=== PATIENT | female | born 1980 | race Caucasian/White ===

== ENCOUNTER 2016-05-20 17:35 | Observation (INO) | payer OTHER ==
[2016-05-20 17:35] VITALS: BMI 41.5
[2016-05-20 17:43] VITALS: RESP 18
[2016-05-20] MEDS ORDERED: Albuterol 0.083% Inhal Sol (2.5 mg/3 mL) UD ONE (17:53)
[2016-05-20] MEDS ORDERED: Sodium Chloride 0.9% 1,000 ML IV STA (17:57)
--- NOTE | 2016-05-20 18:04 | ED PDOC ---
HPI: General Adult Time Seen by Provider: 05/20/16 17:44 Chief Complaint (Nursing): Cough, Cold, Congestion Chief Complaint (Provider): Cough, Cold, Congestion History Per: Patient History/Exam Limitations: no limitations Onset/Duration Of Symptoms: Days (x2 days) Have you had recent travel within the past 21 days to any of the following countries: [place], [place], [employer] or [place]?: No Current Symptoms Are (Timing): Still Present Severity: Moderate Additional Complaint(s): Shae Peña is a 35 year old female, with a past medical history of asthma and anemia, who presents to the emergency department for the evaluation of a cough that produces white and green sputum, that the patient has been experiencing for the past two days. Patient states she was wheezing, but her symptoms cleared up prior to arrival. Associated fever, congestion, and generalized weakness are also currently present. States that she feels her blood count is low. Reports a long hx of anemia and multiple previous blood transfusions. States that her menstruation ended yesterday but she had heavy vaginal bleeding begining on 05/07/2016. Denies dysuria, pelvic pain, abdominal pain, melena, hematochezia, BRBPR. Last BM was today and was normal. PMD: Dr. Houston Past Medical History Reviewed: Historical Data, Nursing Documentation, Vital Signs Vital Signs: Last Vital Signs Temp 98.2 F 05/20/16 20:14 Pulse 92 H 05/20/16 20:14 Resp 18 05/20/16 20:14 BP 131/77 05/20/16 20:14 Pulse Ox 98 05/20/16 20:14 - Medical History PMH: Anemia, Asthma, Bipolar Disorder (non-compliant with medications x3 months) , Schizophrenia (non-compliant with medications x3 months) Denies: Seizures, Sexually Transmitted Disease - Surgical History Other surgeries: Right ovarian cyst removed; Vaginal polyps/cyst removed - Family History Family History: States: No Known Family Hx - Social History Current smoker - smoking cessation education provided: Yes (Light smoker <10 cigarettes daily) Alcohol: None Drugs: Denies - Home Medications Home Medications: Ambulatory Orders Medication Instructions Recorded Ferrous Sulfate [Feosol] 325 mg PO BID #60 tablet 08/24/15 - Allergies Allergies/Adverse Reactions: Allergies Allergy/AdvReac Type Severity Reaction Status Date / Time No Known Allergies Allergy Verified 08/23/15 21:37 Review of Systems ROS Statement: Except As Marked, All Systems Reviewed And Found Negative Constitutional: Positive for: Fever ENT: Positive for: Nose Congestion Respiratory: Positive for: Cough, Sputum (white and green), Wheezing Neurological: Positive for: Weakness Physical Exam - Reviewed Nursing Documentation Reviewed: Yes Vital Signs Reviewed: Yes - Physical Exam Appears: Positive for: Non-toxic, No Acute Distress Head Exam: Positive for: ATRAUMATIC, NORMOCEPHALIC Skin: Positive for: Normal Color, Warm, Dry Eye Exam: Positive for: Normal appearance, EOMI ENT: Positive for: Normal ENT Inspection. Negative for: Pharyngeal Erythema, Tonsillar Exudate, Tonsillar Swelling Neck: Positive for: Normal, Painless ROM, Supple Cardiovascular/Chest: Positive for: Regular Rate, Rhythm. Negative for: Murmur Respiratory: Positive for: Normal Breath Sounds. Negative for: Wheezing, Respiratory Distress Gastrointestinal/Abdominal: Positive for: Normal Exam, Soft. Negative for: Tenderness Back: Positive for: Normal Inspection. Negative for: L CVA Tenderness, R CVA Tenderness Extremity: Positive for: Normal ROM. Negative for: Tenderness, Swelling Neurologic/Psych: Positive for: Alert, Oriented - Laboratory Results Result Diagrams: 05/20/16 18:10 05/20/16 18:10 Urine POC: Negative - ECG ECG: Positive for: Interpreted By Me ECG Rhythm: Positive for: Sinus Rhythm. Negative for: ST/T Changes Rate: 85 O2 Sat by Pulse Oximetry: 99 (RA) Pulse Ox Interpretation: Normal Medical Decision Making Medical Decision Makin:44 Initial Impression: Anemia vs. viral syndrome Initial Plan: * CXR * CBC * CMP * PT/INR * PTT * Type and Screen * Urine * UA * Peak Flow Pre/Post Treatment * Albuterol 0.083% 2.5 mg INH * Sodium Chloride 0.9% 1,000 ml IV at 1,000 mls/hr * Reevaluation Scribe Attestation: Documented by Jeb Anaya, acting as a scribe for ASHELY Hilton. Provider Scribe Attestation: All medical record entries made by the Scribe were at my direction and personally dictated by me. I have reviewed the chart and agree that the record accurately reflects my personal performance of the history, physical exam, medical decision making, and the department course for this patient. I have also personally directed, reviewed, and agree with the discharge instructions and disposition. Disposition - Clinical Impression Clinical Impression: Symptomatic anemia - Patient ED Disposition Is Patient to be Admitted: Yes - Disposition Disposition Time: 19:00 Condition: STABLE
[2016-05-20] MEDS ORDERED: Albuterol 0.083% Inhal Sol (2.5 mg/3 mL) UD INH STA (18:17)
--- NOTE | 2016-05-20 18:21 | RAD ---
HISTORY: Cough COMPARISON: 06/23/2014 TECHNIQUE: Chest PA and lateral FINDINGS: LUNGS: The lungs are well inflated and clear. PLEURA: No significant pleural effusion identified. No pneumothorax apparent. CARDIOVASCULAR: Normal. OSSEOUS STRUCTURES: No significant abnormalities. VISUALIZED UPPER ABDOMEN: Normal. OTHER FINDINGS: None. IMPRESSION: No active pulmonary disease.
[2016-05-20 18:30] LABS: BASO # 0.1 K/uL (0.0-0.2); BASO % 0.6 % (0.0-2.0); EOS # 0.1 K/uL (0.0-0.7); EOS % 0.5 % (0.0-4.0); HEMATOCRIT 25.2 % (34.0-47.0); LYMPH # 3.6 K/uL (1.0-4.3); LYMPH % 25.7 % (20.0-40.0); MEAN CELL VOLUME 57.6 fl (81.0-99.0); MEAN CORPUSCULAR HEMOGLOBIN 15.9 pg (27.0-31.0); MEAN CORPUSCULAR HGB CONC 27.5 g/dL (33.0-37.0); MONO # 0.8 K/uL (0.0-0.8); NEUT # 9.3 K/uL (1.8-7.0); NEUT % 67.2 % (50.0-75.0); NRBC % 0.1 % (0.0-0.0); RED CELL DISTRIBUTION WIDTH 19.7 % (11.5-14.5); WHITE BLOOD COUNT 13.9 K/uL (4.8-10.8)
[2016-05-20 18:41] LABS: ALKALINE PHOSPHATASE 88 U/L (38-126); ALT/SGPT 83 U/L (9-52); AST/SGOT 125 U/L (14-36); BILIRUBIN,TOTAL 0.8 mg/dl (0.2-1.3); BLOOD UREA NITROGEN 8 mg/dl (7-17); CALCIUM 9.2 mg/dL (8.4-10.2); CARBON DIOXIDE 26 mmol/L (22-30); CHLORIDE 105 mmol/L (98-107); GFR AFRICAN-AMERICAN > 60; GLUCOSE,RANDOM 92 mg/dL (65-105); POTASSIUM 4.4 MMOL/L (3.6-5.0); SODIUM 144 mmol/l (132-148); TOTAL PROTEIN 7.3 G/DL (6.3-8.2)
[2016-05-20 18:50] LABS: PARTIAL THROMBOPLASTIN TIME 21.4 SECONDS (23.3-32.5)
[2016-05-20 19:32] LABS: RBC URINE 2 /hpf (0-3); URINE BACTERIA OCC (<OCC); URINE BILIRUBIN NEGATIVE (NEGATIVE); URINE BLOOD SMALL (NEGATIVE); URINE COLOR AMBER (YELLOW); URINE GLUCOSE (UA) NEG (Normal); URINE KETONE NEGATIVE (NEGATIVE); URINE LEUKOCYTE ESTERASE MOD Leu/uL (Negative); URINE PROTEIN 100 mg/dL (NEGATIVE); WBC URINE 29 /hpf (0-5)
--- NOTE | 2016-05-21 | CP.PCM.HP ---
History of Present Illness - History of Present Illness History of Present Illness: 35yo F w PMHx of chronic anemia, menorrhagia, and schizoaffective disorder bipolar type is admitted due to symptomatic anemia for two days. Following the completion of her menstrual cycle two days ago, she experiences dizziness when physically exerting herself. She denies LOC, headstrike, nausea, vomiting, chest pain, SOB, or exertional dyspnea. However, pt does have a history of admissions for such symptomatic anemia associated with heavy menstrual bleeding. Pt also complaining of mild cough, upper airway congestion for the previous day, and home temperature readings < 100F. Otherwise, she denies diarrhea, constipation, abdominal pain, hematuria, dysuria, hematochezia, melena , or myalgias. 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; , Cycle occurs ev 4-6 wks, uses 1 pack of pads/ day during first week NKDA Home Meds: (as per pt) Iron Daily, Celexa 20mg PO Daily, and Olanzapine 20mg PO HS SHx: 5-8 cigarettes per day, denies etoh, denies illicit drugs ED Course: -CBC -CMP -PT/INR/PTT -EKG -Type & Crossmatch -2u pRBCs -NS @ 1L -UA -Utox Present on Admission - Present on Admission Any Indicators Present on Admission: No History of DVT/PE: No History of Uncontrolled Diabetes: No Urinary Catheter: No Decubitus Ulcer Present: No Review of Systems - Review of Systems Review of Systems: see HPI Past Patient History - Infectious Disease Hx of Infectious Diseases: None - Past Medical History & Family History Past Medical History?: Yes - Past Social History Alcohol: None Drugs: Denies - CARDIAC Hx Cardiac Disorders: No - PULMONARY Hx Asthma: Yes - NEUROLOGICAL Hx Seizures: No - HEENT Hx HEENT Problems: No - ENDOCRINE/METABOLIC Hx Endocrine Disorders: No - HEMATOLOGICAL/ONCOLOGICAL Hx Anemia: Yes - INTEGUMENTARY Hx Dermatological Problems: No - MUSCULOSKELETAL/RHEUMATOLOGICAL Hx Musculoskeletal Disorders: No - GASTROINTESTINAL Hx Gastrointestinal Disorders: Yes Other/Comment: hx abdominal pains - GENITOURINARY/GYNECOLOGICAL Hx Sexually Transmitted Disorders: No - PSYCHIATRIC Hx Bipolar Disorder: Yes (non-compliant with medications x3 months) Hx Schizophrenia: Yes (non-compliant with medications x3 months) - SURGICAL HISTORY Hx Surgeries: Yes Other/Comment: Right Ovarian cyst removed and Vaginal polyps/cyst removed - ANESTHESIA Hx Anesthesia: Yes Hx Anesthesia Reactions: No Hx Malignant Hyperthermia: No Meds Allergies/Adverse Reactions: Allergies Allergy/AdvReac Type Severity Reaction Status Date / Time No Known Allergies Allergy Verified 08/23/15 21:37 Physical Exam - Constitutional Appears: Non-toxic, No Acute Distress - Head Exam Head Exam: ATRAUMATIC, NORMAL INSPECTION - Eye Exam Eye Exam: EOMI Pupil Exam: PERRL - ENT Exam ENT Exam: Mucous Membranes Dry - Neck Exam Neck exam: Positive for: Full Rom. Negative for: Tenderness - Respiratory Exam Respiratory Exam: Clear to Auscultation Bilateral, NORMAL BREATHING PATTERN. absent: Rhonchi, Wheezes, Respiratory Distress - Cardiovascular Exam Cardiovascular Exam: REGULAR RHYTHM - GI/Abdominal Exam GI & Abdominal Exam: Normal Bowel Sounds, Soft. absent: Tenderness - Extremities Exam Extremities exam: Positive for: normal inspection. Negative for: calf tenderness - Neurological Exam Neurological exam: Alert, CN II-XII Intact, Oriented x3 - Psychiatric Exam Psychiatric exam: Normal Affect, Normal Mood - Skin Skin Exam: Dry, Intact, Pallor Results - Vital Signs Recent Vital Signs: Last Vital Signs Temp 98.2 F 05/20/16 20:14 Pulse 85 05/20/16 22:16 Resp 18 05/20/16 20:14 BP 131/77 05/20/16 20:14 Pulse Ox 99 05/20/16 22:16 - Labs Result Diagrams: 05/20/16 18:10 05/20/16 18:10 Assessment & Plan - Assessment and Plan (Free Text) Plan: 35yo F w PMHx of chronic anemia, menorrhagia, schizophrenia, and bipolar disorder is admitted due to symptomatic anemia for two days 1) Symptomatic Anemia -Associated w menstrual cycle, which completed two days prior to visit -Noted dizziness during exertion or ambulation -H/H: 6.9/25.2 -Ordered for 2u pRBCs by ED -f/u post transfusion CBC -f/u Signs/Symptoms -f/u Vitals -f/u EKG 2) Elevated LFTs -Currently taking Olanzapine -f/u Hep Panel -f/u Tox Screen -f/u CMP 3) Schizoaffective Disorder - Bipolar Type -c/w Home Medications (listed below) -pt states she sees Psych @ [facility] 2x/wk but does not recall physician's name -Olanzapine 20mg PO HS -Celexa 20mg PO Daily 4) URI -Presently asymptomatic -Afebrile, No cough, No rhinorrhea, Benign respiratory exam -Will consider symptomatic therapy if symptoms return 5) DVT Prophylaxis -SCDs
[2016-05-21] MEDS ORDERED: Albuterol 0.083% Inhal Sol (2.5 mg/3 mL) UD INH PRN (00:01)
[2016-05-21 01:32] VITALS: O2SAT 98
[2016-05-21] MEDS ORDERED: guaiFENesin DM 200 mg-20 mg/10 ml UD PO PRN (05:35)
[2016-05-21 07:35] LABS: HEMATOCRIT 27.7 % (34.0-47.0); MEAN CELL VOLUME 62.7 fl (81.0-99.0); MEAN CORPUSCULAR HEMOGLOBIN 17.8 pg (27.0-31.0); MEAN CORPUSCULAR HGB CONC 28.5 g/dL (33.0-37.0); RED CELL DISTRIBUTION WIDTH 25.1 % (11.5-14.5); WHITE BLOOD COUNT 11.7 K/uL (4.8-10.8)
[2016-05-21 08:15] VITALS: BP 118/75; PULSE 66; TEMP 98.2
[2016-05-21 10:10] LABS: HEMATOCRIT 26.8 % (34.0-47.0); MEAN CELL VOLUME 62.2 fl (81.0-99.0); MEAN CORPUSCULAR HEMOGLOBIN 17.9 pg (27.0-31.0); MEAN CORPUSCULAR HGB CONC 28.8 g/dL (33.0-37.0); RED CELL DISTRIBUTION WIDTH 24.3 % (11.5-14.5); WHITE BLOOD COUNT 10.6 K/uL (4.8-10.8)
--- NOTE | 2016-05-21 10:36 | CP.PCM.DIS ---
Provider - Provider Date of Admission: 05/20/16 19:39 Attending physician: Tanya Durand MD Time Spent in preparation of Discharge (in minutes): 40 Diagnosis - Discharge Diagnosis (1) Symptomatic anemia Status: Acute Priority: Medium Comment: - s/p 2Units of PRBCs. - H/H 7.9/27.7. -hx of heavy menstrul periods. -Continue IROn sulfate 325 mg PO TID. 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 - OCPs will be considered Hospital Course - Lab Results Lab Results: Most Recent Lab Values WBC 10.6 K/uL (4.8-10.8) 05/21/16 09:45 RBC 4.31 Mil/uL (3.80-5.20) 05/21/16 09:45 Hgb 7.7 g/dL (12.0-16.0) L 05/21/16 09:45 Hct 26.8 % (34.0-47.0) L 05/21/16 09:45 MCV 62.2 fl (81.0-99.0) L 05/21/16 09:45 MCH 17.9 pg (27.0-31.0) L 05/21/16 09:45 MCHC 28.8 g/dL (33.0-37.0) L 05/21/16 09:45 RDW 24.3 % (11.5-14.5) H 05/21/16 09:45 Plt Count 198 K/uL (130-400) 05/21/16 09:45 MPV 9.0 fl (7.2-11.7) 05/20/16 18:10 Neut % (Auto) 67.2 % (50.0-75.0) 05/20/16 18:10 Lymph % (Auto) 25.7 % (20.0-40.0) 05/20/16 18:10 [place] % (Auto) 6.0 % (0.0-10.0) 05/20/16 18:10 Eos % (Auto) 0.5 % (0.0-4.0) 05/20/16 18:10 Baso % (Auto) 0.6 % (0.0-2.0) 05/20/16 18:10 Neut # 9.3 K/uL (1.8-7.0) H 05/20/16 18:10 Lymph # 3.6 K/uL (1.0-4.3) 05/20/16 18:10 [place] # 0.8 K/uL (0.0-0.8) 05/20/16 18:10 Eos # 0.1 K/uL (0.0-0.7) 05/20/16 18:10 Baso # 0.1 K/uL (0.0-0.2) 05/20/16 18:10 PT 10.7 SECONDS (9.6-11.2) 05/20/16 18:10 INR 1.03 (0.92-1.08) 05/20/16 18:10 APTT 21.4 SECONDS (23.3-32.5) L 05/20/16 18:10 Sodium 144 mmol/l (132-148) 05/20/16 18:10 Potassium 4.4 MMOL/L (3.6-5.0) 05/20/16 18:10 Chloride 105 mmol/L (98-107) 05/20/16 18:10 Carbon Dioxide 26 mmol/L (22-30) 05/20/16 18:10 Anion Gap 18 (10-20) 05/20/16 18:10 BUN 8 mg/dl (7-17) 05/20/16 18:10 Creatinine 0.6 mg/dL (0.7-1.2) L 05/20/16 18:10 Est GFR ( Amer) > 60 05/20/16 18:10 Est GFR (Non-Af Amer) > 60 05/20/16 18:10 Random Glucose 92 mg/dL (65-105) 05/20/16 18:10 Calcium 9.2 mg/dL (8.4-10.2) 05/20/16 18:10 Total Bilirubin 0.8 mg/dl (0.2-1.3) 05/20/16 18:10 AST 125 U/L (14-36) H D 05/20/16 18:10 ALT 83 U/L (9-52) H D 05/20/16 18:10 Alkaline Phosphatase 88 U/L (38-126) 05/20/16 18:10 Total Protein 7.3 G/DL (6.3-8.2) 05/20/16 18:10 Albumin 3.7 g/dL (3.5-5.0) 05/20/16 18:10 Globulin 3.6 gm/dL (2.2-3.9) 05/20/16 18:10 Albumin/Globulin Ratio 1.0 (1.0-2.1) 05/20/16 18:10 Urine Color [place] (YELLOW) 05/20/16 19:15 Urine Clarity Slighty-cloudy (Clear) 05/20/16 19:15 Urine pH 6.0 (5.0-8.0) 05/20/16 19:15 Ur Specific [place] 1.024 (1.003-1.030) 05/20/16 19:15 Urine Protein 100 mg/dL (NEGATIVE) 05/20/16 19:15 Urine Glucose (UA) Neg mg/dL (Normal) 05/20/16 19:15 Urine Ketones Negative mg/dL (NEGATIVE) 05/20/16 19:15 Urine Blood Small (NEGATIVE) 05/20/16 19:15 Urine Nitrate Negative (NEGATIVE) 05/20/16 19:15 Urine Bilirubin Negative (NEGATIVE) 05/20/16 19:15 Urine Urobilinogen 4.0 mg/dL (0.2-1.0) H 05/20/16 19:15 Ur Leukocyte Esterase Mod [place]yana/uL (Negative) 05/20/16 19:15 Urine RBC (Auto) 2 /hpf (0-3) 05/20/16 19:15 Urine Microscopic WBC 29 /hpf (0-5) H 05/20/16 19:15 Ur Squamous Epith Cells 4 /hpf (0-5) 05/20/16 19:15 Urine Bacteria Occ (<OCC) H 05/20/16 19:15 Alcohol, Quantitative < 10 mg/dl (0-10) 05/21/16 05:30 Blood Type O POSITIVE 05/20/16 18:10 Antibody Screen Positive 05/20/16 18:10 Antibody Identification Anti K 05/20/16 18:10 Crossmatch See Detail 05/20/16 18:10 BBK History Checked Patient has bt 05/20/16 18:10 - Hospital Course Hospital Course: Patient 35 y/o females obese , pmhx of schizoafective disorder and heavy menstrual periods since 17y/o , came with symptomatic anemia she was transfused , 2 units of PRBCs, no evidence of active bleeding, on iron PO TID by PMD. Today reported felling well denied nausea vomits , headaches, blurry vision. Discharge Exam - Head Exam Head Exam: ATRAUMATIC, NORMAL INSPECTION - Eye Exam Eye Exam: Normal appearance - ENT Exam ENT Exam: Mucous Membranes Moist - Neck Exam Neck exam: Full Rom - Respiratory Exam Respiratory Exam: Clear to PA & Lateral - Cardiovascular Exam Cardiovascular Exam: REGULAR RHYTHM, RRR, +S1, +S2 - GI/Abdominal Exam GI & Abdominal Exam: Normal Bowel Sounds - Extremities Exam Extremities exam: normal capillary refill - Neurological Exam Neurological exam: Alert, Oriented x3 - Psychiatric Exam Psychiatric exam: Flat Affect - Skin Skin Exam: Normal Color Discharge Plan - Follow Up Plan Condition: IMPROVED Disposition: HOME/ ROUTINE Patient education suggested?: No Instructions: Iron Rich Diet (DC), Anemia (DC) Additional Instructions: Follow up in Clinic, call ph#[phone] for appointment. Repeat blood work in 3days.
--- NOTE | 2016-05-21 19:20 | CARD ---
APPROVED REPORT EKG Measurement Heart [id number] <Conclusion> Normal sinus rhythm Normal ECG
[2016-05-26 14:06] LABS: ACETONE None Detected (()); ETHANOL None Detected (()); METHANOL None Detected (())
== END 2016-05-21 11:42 | disposition home or self-care (01) ==
LOC: H.ER 17:35 → H.ERHOLD 19:39 → H.MEDSURG1 20:32
PROVIDERS: ADMIT Family Medicine Geriatric Medicine; ATTEND Family Medicine Geriatric Medicine
DX: D64.9 Anemia, unspecified (principal); F17.210 Nicotine dependence, cigarettes, uncomplicated; J45.909 Unspecified asthma, uncomplicated; Z91.14 Patient's other noncompliance with medication regimen; F25.0 Schizoaffective disorder, bipolar type; E66.9 Obesity, unspecified

== ENCOUNTER 2017-03-19 11:07 | Emergency (ER) | payer OTHER ==
[2017-03-19 11:08] VITALS: BMI 41.5
[2017-03-19 11:28] VITALS: BP 140/96; PULSE 95; RESP 16; TEMP 98.7; O2SAT 97
[2017-03-19] MEDS ORDERED: Albuterol-Ipratrop 3 mg / 0.5 (3 ml) UD INH STA ×3 (11:37→11:39)
[2017-03-19] MEDS ORDERED: Sodium Chloride 0.9% 1,000 ML IV SCH (11:45)
--- NOTE | 2017-03-19 11:50 | ED PDOC ---
HPI: General Adult Time Seen by Provider: 03/19/17 11:26 Chief Complaint (Nursing): Cough, Cold, Congestion Chief Complaint (Provider): asthma History Per: Patient History/Exam Limitations: no limitations Current Symptoms Are (Timing): Still Present Additional Complaint(s): 36 year old female presents to the emergency department with a complaint of a cough and shortness of breath x1 day. Associated with 3 vomiting episodes that started yesterday and 2 episodes today but mostly because of the cough. States she has been coughing for the past few days despite taking her albuterol pumps 4 times every 5 hours which has not helped with her asthma. Denies fever, chills , diarrhea, smoking, or previous admission for asthma exacerbation. Of note, patient was treated two weeks ago by her primary care doctor for bronchitis and given antibiotics. Reports she finished the medications but is still coughing. PMD: Dr. Rivera Barger MD Past Medical History Reviewed: Historical Data, Nursing Documentation, Vital Signs Vital Signs: Last Vital Signs Temp 98.7 F 03/19/17 11:24 Pulse 95 H 03/19/17 11:24 Resp 16 03/19/17 11:24 BP 140/96 H 03/19/17 11:24 Pulse Ox 97 03/19/17 14:05 - Medical History PMH: Anemia, Asthma, Bipolar Disorder (non-compliant with medications x3 months) , Schizophrenia (non-compliant with medications x3 months) Denies: Chronic Kidney Disease, Seizures, Sexually Transmitted Disease - Family History Family History: States: Unknown Family Hx - Home Medications Home Medications: Ambulatory Orders Medication Instructions Recorded Ferrous Sulfate [Feosol] 325 mg PO BID #60 tablet 08/24/15 Albuterol 0.083% [Albuterol 0.083% 2.5 mg IH Q6H PRN #50 neb 03/19/17 Inhal Jesusita (2.5 mg/3 ml) UD] Albuterol HFA [Ventolin HFA 90 2 puff IH Q6H #1 inhaler 03/19/17 mcg/actuation (8 g)] Guaifenesin/Pseudoephedrne HCl 1 ter PO Q12H PRN #10 ter 03/19/17 [Mucinex D 600 mg-60 mg] Ondansetron [Zofran] 4 mg PO Q8H #9 tab 03/19/17 predniSONE [predniSONE Tab] 40 mg PO DAILY #10 tab 03/19/17 - Allergies Allergies/Adverse Reactions: Allergies Allergy/AdvReac Type Severity Reaction Status Date / Time No Known Allergies Allergy Verified 03/19/17 11:28 Review of Systems ROS Statement: Except As Marked, All Systems Reviewed And Found Negative (As per HPI, otherwise negative) Constitutional: Negative for: Fever, Chills Respiratory: Positive for: Cough, Shortness of Breath Gastrointestinal: Positive for: Vomiting. Negative for: Diarrhea Physical Exam - Reviewed Nursing Documentation Reviewed: Yes Vital Signs Reviewed: Yes - Physical Exam Appears: Positive for: No Acute Distress Head Exam: Positive for: NORMAL INSPECTION Skin: Positive for: Normal Color, Warm, Dry ENT: Positive for: Normal ENT Inspection. Negative for: Pharyngeal Erythema Cardiovascular/Chest: Positive for: Regular Rate, Rhythm. Negative for: Murmur Respiratory: Positive for: Decreased Breath Sounds (Decreased air entry bilaterally with prolong expiratory phase ), Wheezing (High pitch end expiratory wheezing ). Negative for: Respiratory Distress Gastrointestinal/Abdominal: Positive for: Normal Exam, Soft. Negative for: Tenderness Extremity: Positive for: Normal ROM. Negative for: Pedal Edema Neurologic/Psych: Positive for: Alert, Oriented (x3) - Laboratory Results Result Diagrams: 03/19/17 12:00 03/19/17 12:00 - ECG O2 Sat by Pulse Oximetry: 97 (RA) Pulse Ox Interpretation: Normal Medical Decision Making Medical Decision Making: Time: 1138 Initial Impression: Acute exacerbation of asthma Initial Plan: --BMP --CBC w. diff --Duoneb 3 ml --Duoneb 3 ml --Duoneb 3 ml --Pepcid 20 mg IVP --Methylprednisolone 125 mg IVP --Sodium Chloride 1L IV --Reevaluation Scribe Attestation: Documented by Charlene Hoffman, acting as a scribe for Lilli Washington MD. Provider Scribe Attestation: All medical record entries made by the Scribe were at my direction and personally dictated by me. I have reviewed the chart and agree that the record accurately reflects my personal performance of the history, physical exam, medical decision making, and the department course for this patient. I have also personally directed, reviewed, and agree with the discharge instructions and disposition. peak flow at 400 LPM; she is feeling better. lungs are mostly clear. she still vomits when she coughs alot. Disposition - Clinical Impression Clinical Impression: Asthma - Patient ED Disposition Is Patient to be Admitted: No Doctor Will See Patient In The: Office Counseled Patient/Family Regarding: Diagnosis, Need For Followup, Rx Given - Disposition Referrals: Fiorella Cheng [Outside] Disposition: Routine/Home Disposition Time: 14:00 Condition: IMPROVED Prescriptions: Albuterol 0.083% [Albuterol 0.083% Inhal Jesusita (2.5 mg/3 ml) UD] 2.5 mg IH Q6H PRN #50 neb PRN Reason: Cough Albuterol HFA [Ventolin HFA 90 mcg/actuation (8 g)] 2 puff IH Q6H #1 inhaler Guaifenesin/Pseudoephedrne HCl [Mucinex D 600 mg-60 mg] 1 ter PO Q12H PRN #10 ter PRN Reason: cough/congestion Ondansetron [Zofran] 4 mg PO Q8H #9 tab predniSONE [predniSONE Tab] 40 mg PO DAILY #10 tab Instructions: Asthma (ED) Forms: [employer] ([place]ian) - POA Present On Arrival: None
[2017-03-19] MEDS ORDERED: Albuterol-Ipratrop 3 mg / 0.5 (3 ml) UD ONE (12:05)
[2017-03-19 12:18] LABS: BLOOD UREA NITROGEN 9 mg/dl (7-17); GFR AFRICAN-AMERICAN > 60; GFR NON-AFRICAN AMERICAN > 60
[2017-03-19 12:37] LABS: BASO # 0.1 K/uL (0.0-0.2); EOS % 0.9 % (0.0-4.0); HEMOGLOBIN 7.7 g/dL (12.0-16.0); LYMPH # 1.9 K/uL (1.0-4.3); LYMPH % 38.5 % (20.0-40.0); MEAN CELL VOLUME 65.2 fl (81.0-99.0); MEAN CORPUSCULAR HGB CONC 29.2 g/dL (33.0-37.0); MEAN PLATELET VOLUME 9.2 fl (7.2-11.7); MONO # 0.8 K/uL (0.0-0.8); MONO % 15.9 % (0.0-10.0); NEUT # 2.2 K/uL (1.8-7.0); NEUT % 43.7 % (50.0-75.0); NRBC % 0.1 % (0.0-0.0); RBC 4.06 Mil/uL (3.80-5.20); RED CELL DISTRIBUTION WIDTH 20.7 % (11.5-14.5); WHITE BLOOD COUNT 4.9 K/uL (4.8-10.8)
== END 2017-03-19 14:27 | disposition home or self-care (01) ==
LOC: H.ER 11:07
DX: J45.901 Unspecified asthma with (acute) exacerbation (principal); F31.9 Bipolar disorder, unspecified; F20.9 Schizophrenia, unspecified
CPT/HCPCS: 80048; 85025; 94640; 96361; 96374; 96375; 99282; J2405; J2930; J7040

== ENCOUNTER 2017-03-24 20:25 | Emergency (ER) | payer OTHER ==
[2017-03-24 20:26] VITALS: BMI 41.5
[2017-03-24 20:51] VITALS: O2SAT 100
[2017-03-24] MEDS ORDERED: Alum-Mag Hydrox-Simethicone Susp (30 mL) PO ONE (22:46)
--- NOTE | 2017-03-24 22:48 | ED PDOC ---
HPI: Abdomen Time Seen by Provider: 03/24/17 21:45 Chief Complaint (Nursing): Abdominal Pain Chief Complaint (Provider): Abdominal Pain History Per: Patient Additional Complaint(s): 36 yo female, PMH of Asthma and Anemia, presents to ED with complaints of abdominal pain, nausea vomiting x4 today. Pt points to epigastric area when asked where pain is located. No fever or chills , no diarrhea Past Medical History Reviewed: Nursing Documentation, Vital Signs Vital Signs: Last Vital Signs Temp 98 F 03/25/17 01:09 Pulse 66 03/25/17 01:09 Resp 16 03/25/17 01:09 BP 133/76 03/25/17 01:09 Pulse Ox 100 03/25/17 01:09 - Medical History PMH: Anemia, Asthma, Bipolar Disorder (non-compliant with medications x3 months) , Schizophrenia (non-compliant with medications x3 months) Denies: Chronic Kidney Disease, Seizures, Sexually Transmitted Disease - Family History Family History: States: Unknown Family Hx - Home Medications Home Medications: Ambulatory Orders Medication Instructions Recorded Ferrous Sulfate [Feosol] 325 mg PO BID #60 tablet 08/24/15 Albuterol 0.083% [Albuterol 0.083% 2.5 mg IH Q6H PRN #50 neb 03/19/17 Inhal Jesusita (2.5 mg/3 ml) UD] Albuterol HFA [Ventolin HFA 90 2 puff IH Q6H #1 inhaler 03/19/17 mcg/actuation (8 g)] Guaifenesin/Pseudoephedrne HCl 1 ter PO Q12H PRN #10 ter 03/19/17 [Mucinex D 600 mg-60 mg] Ondansetron [Zofran] 4 mg PO Q8H #9 tab 03/19/17 predniSONE [predniSONE Tab] 40 mg PO DAILY #10 tab 03/19/17 Famotidine [Pepcid] 20 mg PO DAILY #20 tab 03/25/17 - Allergies Allergies/Adverse Reactions: Allergies Allergy/AdvReac Type Severity Reaction Status Date / Time No Known Allergies Allergy Verified 03/19/17 11:28 Review of Systems ROS Statement: Except As Marked, All Systems Reviewed And Found Negative Gastrointestinal: Positive for: Nausea, Vomiting, Abdominal Pain Physical Exam - Reviewed Nursing Documentation Reviewed: Yes Vital Signs Reviewed: Yes - Physical Exam Appears: Positive for: Well, Non-toxic, No Acute Distress Head Exam: Positive for: ATRAUMATIC, NORMAL INSPECTION, NORMOCEPHALIC Skin: Positive for: Normal Color, Warm, DRY Eye Exam: Positive for: EOMI, Normal appearance, PERRL ENT: Positive for: Normal ENT Inspection Neck: Positive for: Normal, Painless ROM Cardiovascular/Chest: Positive for: Regular Rate, Rhythm Respiratory: Positive for: CNT, Normal Breath Sounds Gastrointestinal/Abdominal: Positive for: Bowel Sounds, Soft, Tenderness (mild epigastric). Negative for: Distended, Guarding Back: Positive for: Normal Inspection Extremity: Positive for: Normal ROM Neurologic/Psych: Positive for: Alert, Oriented - Laboratory Results Result Diagrams: 03/24/17 23:02 03/24/17 23:02 - ECG O2 Sat by Pulse Oximetry: 100 Medical Decision Making Medical Decision Making: IV access established and treatment initiated with Zofran, Pepcid and GI cocktail On re-eval, Pt reports pain continues 2 mg Morphine administered. Good relief obtained on re-eval Labs resulted and reviewed with Pt who demonstrated full understanding. Hgb 7.8 which is higher than previous ED visits. Pt is followed by Dr. ahumada, hem/onc, and reports actively menstruating at this time Pt on re-eval reports feeling improved. asking ot go home. Abdomen soft, non tender and non distended Disposition - Clinical Impression Clinical Impression: Gastritis - Patient ED Disposition Is Patient to be Admitted: No - Disposition Disposition: Routine/Home Disposition Time: 01:30 Condition: STABLE Prescriptions: Famotidine [Pepcid] 20 mg PO DAILY #20 tab Instructions: Gastritis Forms: [employer] ([place] Leone[place])
[2017-03-24 23:48] LABS: BASO % 0.4 % (0.0-2.0); EOS # 0.3 K/uL (0.0-0.7); EOS % 2.5 % (0.0-4.0); HEMOGLOBIN 7.8 g/dL (12.0-16.0); LYMPH # 4.6 K/uL (1.0-4.3); LYMPH % 42.1 % (20.0-40.0); MEAN CELL VOLUME 64.7 fl (81.0-99.0); MEAN CORPUSCULAR HEMOGLOBIN 19.2 pg (27.0-31.0); MEAN CORPUSCULAR HGB CONC 29.6 g/dL (33.0-37.0); MEAN PLATELET VOLUME 9.3 fl (7.2-11.7); MONO # 0.6 K/uL (0.0-0.8); MONO % 5.6 % (0.0-10.0); NEUT # 5.4 K/uL (1.8-7.0); NEUT % 49.4 % (50.0-75.0); NRBC % 0.1 % (0.0-0.0); RBC 4.07 Mil/uL (3.80-5.20); RED CELL DISTRIBUTION WIDTH 20.3 % (11.5-14.5); WHITE BLOOD COUNT 10.8 K/uL (4.8-10.8)
[2017-03-25 00:09] LABS: ALB/GLOB RATIO 1.1 (1.0-2.1); ALBUMIN 3.4 g/dL (3.5-5.0); ALT/SGPT 77 U/L (9-52); AMYLASE 67 U/L (30-110); AST/SGOT 74 U/L (14-36); BLOOD UREA NITROGEN 11 mg/dl (7-17); CALCIUM 8.7 mg/dL (8.4-10.2); GFR AFRICAN-AMERICAN > 60; GFR NON-AFRICAN AMERICAN > 60; LIPASE 41 U/L (23-300)
[2017-03-25 00:26] LABS: SQUAMOUS EPITHIAL 2 /hpf (0-5); URINE AMORPHOUS SEDIMENT RARE /ul (<OCC); URINE BACTERIA OCC (<OCC); URINE BILIRUBIN NEGATIVE (NEGATIVE); URINE BLOOD LARGE (NEGATIVE); URINE CLARITY CLOUDY (Clear); URINE COLOR YELLOW (YELLOW); URINE GLUCOSE (UA) NEG (Normal); URINE LEUKOCYTE ESTERASE SMALL Leu/uL (Negative); URINE NITRATE NEGATIVE (NEGATIVE); URINE PROTEIN NEGATIVE (NEGATIVE); URINE UROBILINOGEN 0.2-1.0 mg/dL (0.2-1.0)
[2017-03-25 01:09] VITALS: BP 133/76; PULSE 66; RESP 16; TEMP 98
== END 2017-03-25 01:27 | disposition home or self-care (01) ==
LOC: H.ER 20:25
DX: K29.70 Gastritis, unspecified, without bleeding (principal)
CPT/HCPCS: 80053; 81003; 81025; 82150; 83690; 85025; 96374; 96375; 96376; 99283; J2270; J2405

== ENCOUNTER 2017-06-21 10:24 | Emergency (ER) | payer OTHER ==
[2017-06-21 10:53] VITALS: BMI 43.2
[2017-06-21 10:56] VITALS: TEMP 98.3
[2017-06-21] MEDS ORDERED: Sodium Chloride 0.9% 1,000 ML IV STA (11:37)
--- NOTE | 2017-06-21 11:41 | ED PDOC ---
HPI: General Adult Time Seen by Provider: 06/21/17 11:38 Chief Complaint (Nursing): GI Problem Chief Complaint (Provider): FATIGUE/VOMITING History Per: Patient (36 Y/O FEMALE H/O ANEMIA/ASTHMA/GASTRITIS HERE WITH FATIGUE INCREASED LATELY. PATIENT CONCERNED THAT HER HGB HAS DROPPED BELOW 8 ( USUAL NUMBER). NOTES ADDITIONAL VOMITING TODAY AND YESTERDAY. STATES SHE HAS BEEN NONCOMPLIANT WITH GASTRITIS MEDICATION (UNSURE OF NAME) DENIES ANY DIARRHEA /FEVERS/HEMATEMESIS.) Past Medical History Reviewed: Historical Data, Nursing Documentation, Vital Signs Vital Signs: Last Vital Signs Temp 98.3 F 06/21/17 10:53 Pulse 85 06/21/17 10:53 Resp 20 06/21/17 10:53 BP 106/74 06/21/17 10:53 Pulse Ox 100 06/21/17 12:09 - Medical History PMH: Anemia, Asthma, Bipolar Disorder (non-compliant with medications x3 months) , Schizophrenia (non-compliant with medications x3 months) Denies: Chronic Kidney Disease, Seizures, Sexually Transmitted Disease - Family History Family History: States: Unknown Family Hx - Home Medications Home Medications: Ambulatory Orders Medication Instructions Recorded Ferrous Sulfate [Feosol] 325 mg PO BID #60 tablet 08/24/15 Albuterol 0.083% [Albuterol 0.083% 2.5 mg IH Q6H PRN #50 neb 03/19/17 Inhal Jesusita (2.5 mg/3 ml) UD] Albuterol HFA [Ventolin HFA 90 2 puff IH Q6H #1 inhaler 03/19/17 mcg/actuation (8 g)] Guaifenesin/Pseudoephedrne HCl 1 ter PO Q12H PRN #10 ter 03/19/17 [Mucinex D 600 mg-60 mg] Ondansetron [Zofran] 4 mg PO Q8H #9 tab 03/19/17 predniSONE [predniSONE Tab] 40 mg PO DAILY #10 tab 03/19/17 Famotidine [Pepcid] 20 mg PO DAILY #20 tab 03/25/17 Docusate Sodium [Colace] 100 mg PO BID #30 capsule 06/21/17 Ferrous Sulfate 325 mg PO BID #30 tablet 06/21/17 Omeprazole Magnesium [Prilosec Otc] 20 mg PO DAILY #15 tab 06/21/17 - Allergies Allergies/Adverse Reactions: Allergies Allergy/AdvReac Type Severity Reaction Status Date / Time No Known Allergies Allergy Verified 03/19/17 11:28 Review of Systems ROS Statement: Except As Marked, All Systems Reviewed And Found Negative Physical Exam - Reviewed Nursing Documentation Reviewed: Yes Vital Signs Reviewed: Yes - Physical Exam Appears: Positive for: Well, Non-toxic, No Acute Distress Head Exam: Positive for: ATRAUMATIC, NORMAL INSPECTION, NORMOCEPHALIC Skin: Positive for: Normal Color, Warm, DRY Eye Exam: Positive for: Normal appearance, EOMI, PERRL, Other (CONJUNCTIVAL PALLOR) ENT: Positive for: Normal ENT Inspection Neck: Positive for: Normal, Painless ROM Cardiovascular/Chest: Positive for: Regular Rate, Rhythm Respiratory: Positive for: CNT, Normal Breath Sounds Gastrointestinal/Abdominal: Positive for: Normal Exam, Soft Back: Positive for: Normal Inspection Extremity: Positive for: Normal ROM Neurologic/Psych: Positive for: Alert, Oriented - Laboratory Results Result Diagrams: 06/21/17 12:01 06/21/17 12:01 Urine POC: Negative - ECG ECG: Positive for: Viewed By Me ECG Rhythm: Positive for: Sinus Rhythm (NSR 67BPM NO ECTOPY NO ACUTE CHANGES.) O2 Sat by Pulse Oximetry: 100 - Progress ED Course And Treament: Last Hgb 7.8 noted 03/2017 pepcid 20 mg iv x 1 dos zofran 4 mg iv x 1 dose As hgb 7.6 today patient advised to f/u with hem/onc Disposition - Clinical Impression Clinical Impression: Anemia, Gastritis - Patient ED Disposition Is Patient to be Admitted: No - Disposition Disposition: Routine/Home Disposition Time: 13:12 Condition: FAIR Prescriptions: Docusate Sodium [Colace] 100 mg PO BID #30 capsule Ferrous Sulfate 325 mg PO BID #30 tablet Omeprazole Magnesium [Prilosec Otc] 20 mg PO DAILY #15 tab Instructions: Gastritis (DC), Anemia Caused by Low Iron Forms: [facility] (Danish), [facility] School/Work Excuse
[2017-06-21 12:13] LABS: BASO % 0.4 % (0.0-2.0); EOS # 0.3 K/uL (0.0-0.7); EOS % 2.5 % (0.0-4.0); HEMOGLOBIN 7.6 g/dL (12.0-16.0); LYMPH # 1.9 K/uL (1.0-4.3); LYMPH % 17.5 % (20.0-40.0); MEAN CELL VOLUME 57.1 fl (81.0-99.0); MEAN CORPUSCULAR HEMOGLOBIN 16.1 pg (27.0-31.0); MEAN CORPUSCULAR HGB CONC 28.2 g/dL (33.0-37.0); MEAN PLATELET VOLUME 9.7 fl (7.2-11.7); MONO # 0.7 K/uL (0.0-0.8); MONO % 6.7 % (0.0-10.0); NEUT # 8.1 K/uL (1.8-7.0); NEUT % 72.9 % (50.0-75.0); RBC 4.69 Mil/uL (3.80-5.20); RED CELL DISTRIBUTION WIDTH 20.4 % (11.5-14.5); WHITE BLOOD COUNT 11.1 K/uL (4.8-10.8)
[2017-06-21 12:22] LABS: ALB/GLOB RATIO 1.2 (1.0-2.1); ALBUMIN 4.1 g/dL (3.5-5.0); ALT/SGPT 27 U/L (9-52); AST/SGOT 61 U/L (14-36); BLOOD UREA NITROGEN 10 mg/dl (7-17); CALCIUM 9.2 mg/dL (8.4-10.2); GFR AFRICAN-AMERICAN > 60; GFR NON-AFRICAN AMERICAN > 60; LIPASE 88 U/L (23-300)
[2017-06-21 12:32] LABS: % IRON SATURATION 4.1 % (20-55)
[2017-06-21 13:27] VITALS: BP 118/88; PULSE 78; RESP 19; O2SAT 99
--- NOTE | 2017-06-21 17:49 | CARD ---
APPROVED REPORT EKG Measurement Heart [id number] <Conclusion> Normal sinus rhythm Normal ECG
== END 2017-06-21 13:33 | disposition home or self-care (01) ==
LOC: H.ER 10:24
DX: K29.70 Gastritis, unspecified, without bleeding (principal); D64.9 Anemia, unspecified; Z86.59 Personal history of other mental and behavioral disorders; J45.909 Unspecified asthma, uncomplicated; Z91.19 Patient's noncompliance with other medical treatment and regimen
CPT/HCPCS: 80053; 81025; 83540; 83550; 83690; 83735; 85025; 86850; 86870; 86900; 93005; 96361; 96374; 96375; 99284; J2405; J7040